=== PATIENT | female | born 1955 | race Hispanic/Latino ===

== ENCOUNTER → 2023-09-27 | Outpatient (CLI) | payer MEDICARE ==
[~2023-09-27] MED LIST: INSU200I4 SQ; MECL-302 PO
== END | disposition home or self-care (01) ==
LOC: RAH 13:01
PROVIDERS: ATTEND Internal Medicine
DX: Z12.31 Encounter for screening mammogram for malignant neoplasm of breast (principal); R92.30 Dense breasts, unspecified
CPT/HCPCS: 77067

== ENCOUNTER → 2023-10-15 | Outpatient (CLI) | payer MEDICARE | END | disposition home or self-care (01) | LOC: RAH 13:46 | PROVIDERS: ATTEND Internal Medicine | DX: R92.8 Other abnormal and inconclusive findings on diagnostic imaging of breast (principal); R92.321 Mammographic fibroglandular density, right breast | CPT/HCPCS: 76641; 77065 ==

== ENCOUNTER → 2023-11-12 | Outpatient (CLI) | payer MEDICARE ==
[2023-11-12 10:24] LABS: INR 1.01 (0.85-1.15); PROTHROMBIN TIME 10.9 SEC (9.6-11.6)
[2023-11-12 10:25] LABS: PARTIAL THROMBOPLASTIN TIME 24.4 SEC (26.3-35.5)
== END | disposition home or self-care (01) ==
LOC: RAH 09:31
PROVIDERS: ATTEND Internal Medicine
DX: R92.8 Other abnormal and inconclusive findings on diagnostic imaging of breast (principal); N63.13 Unspecified lump in the right breast, lower outer quadrant; E55.9 Vitamin D deficiency, unspecified; E11.69 Type 2 diabetes mellitus with other specified complication; E78.5 Hyperlipidemia, unspecified; Z78.0 Asymptomatic menopausal state; E11.65 Type 2 diabetes mellitus with hyperglycemia; L84 Corns and callosities; Z79.01 Long term (current) use of anticoagulants; Z90.710 Acquired absence of both cervix and uterus
CPT/HCPCS: 19083; 85610; 85730; 88361; 36415; 88305; A4215 ×2; A4648

== ENCOUNTER 2024-01-10 06:53 | Day surgery (SDC) | payer MEDICARE ==
--- NOTE | 2024-01-06 09:53 | EKG ---
[facility] Test Date: 2024-01-06 Test Time: 09:51:21 Pat Name: RICARDO PORRAS Department: [facility] Room: Gender: F [employer] Team Lead: [id number] : 1955 Requested By: JASWINDER DIAZ Order Number: [id number] Reading MD: Michael Phan Measurements Intervals [place] Rate: 58 P: -10 LA: 170 QRS: -13 QRSD: 70 T: 10 QT: 464 QTc: 455 Interpretive Statements Sinus bradycardia Low voltage QRS No previous ECG available for comparison Electronically Signed On 01-07-2024 17:19:37 CDT by Michael Phan Please click the below link to view image of tracing.
[2024-01-06 10:03] LABS: BASOPHILS # (AUTO) 0.04 K/uL (0.00-0.20); BASOPHILS % (AUTO) 0.5 % (0.0-5.0); EOSINOPHILS # (AUTO) 0.17 K/uL (0.00-0.70); HEMATOCRIT 40.5 % (36-48); IMMATURE GRANULOCYTE ABSOLUTE 0.03 K/uL (0-1); LYMPHOCYTES # (AUTO) 3.6 K/uL (1.0-4.8); LYMPHOCYTES % (AUTO) 41.1 % (21.0-51.0); MEAN CORPUSCULAR HEMOGLOBIN 32.3 pg (27.0-33.0); MEAN CORPUSCULAR HGB CONC 34.1 g/dL (32.0-36.0); MEAN CORPUSCULAR VOLUME 94.8 fL (79-99); MONOCYTES # (AUTO) 0.6 K/uL (0.1-1.0); MONOCYTES % (AUTO) 6.9 % (3.0-13.0); NEUTROPHILS # (AUTO) 4.3 K/uL (1.8-7.7); NEUTROPHILS % (AUTO) 49.2 % (40.0-77.0); PLATELET COUNT (AUTO) 232 K/uL (130-400); RED BLOOD CELL COUNT(AUTO) 4.27 MIL/uL (4.00-5.50); RED CELL DISTRIBUTION WIDTH 12.4 % (11.0-15.5); WHITE BLOOD COUNT (AUTO) 8.7 K/uL (4.8-10.8)
[2024-01-06 10:16] LABS: APPEARANCE,URINE CLEAR (CLEAR); BILIRUBIN,URINE NEGATIVE (NEGATIVE); COLOR,URINE YELLOW (YELLOW); GLUCOSE, URINE (UA) NEGATIVE (NEGATIVE); KETONES,URINE NEGATIVE (NEGATIVE); LEUKOCYTE ESTERASE ,URINE NEGATIVE Leu/uL (NEGATIVE); NITRATE,URINE NEGATIVE (NEGATIVE); OCCULT BLOOD,URINE NEGATIVE (NEGATIVE); PH,URINE 5.5 (5.0-8.0); PROTEIN,URINE NEGATIVE (NEGATIVE); UROBILINOGEN,URINE 0.2 mg/dL (0.2-1.0)
[2024-01-06 10:17] LABS: ALBUMIN 3.6 g/dL (3.5-5.0); BILIRUBIN,TOTAL 0.4 mg/dL (0.2-1.0); CREATININE 0.9 mg/dL (0.5-1.0); POTASSIUM 4.3 mmol/L (3.5-5.1); PROTHROMBIN TIME 10.8 SEC (9.6-11.6)
[2024-01-06 10:18] LABS: PARTIAL THROMBOPLASTIN TIME 25.4 SEC (26.3-35.5)
[2024-01-06 10:19] LABS: ADD UA MICROSCOPIC NO
[2024-01-06 10:43] VITALS: BP 164/78; PULSE 64; RESP 16; TEMP 96.9
[~2024-01-10] VITALS: Ht 152.4 cm; Wt 72.5 kg
[2024-01-10] VITALS (13 sets, daily range): BP systolic 137–164; BP diastolic 70–87; PULSE 68–88; RESP 13–18; TEMP 96.7–97.4
[~2024-01-10 06:53] MED LIST changes: +0.9%NACL 1000ML 1,000 ML IV SCH; +ATOR10TA69 PO; +CETI-89 PO; -INSU200I4 SQ; -MECL-302 PO; +SEMA0.258 SQ; +VITAMIN B12 PO; +vitamin d PO
[2024-01-10] MEDS ORDERED: dexaMETHasone SOD PHOSPHATE 10MG/ML 1ML VIAL ONE (07:31)
[2024-01-10] MEDS ORDERED: LIDOCAINE PF 100MG/5ML (2%) SYRINGE 5ML ONE (07:31)
[2024-01-10] MEDS ORDERED: GLYCOPYRROLATE 0.2 MG/ML 5 ML VIAL ONE (07:32)
[2024-01-10] MEDS ORDERED: ondanSETRON 4MG INJ ONE (07:32)
[2024-01-10] MEDS ORDERED: NEOSTIGMINE METHYLSULFATE 1MG/ML IV ONE (07:33)
[2024-01-10] MEDS ORDERED: rocuRONium bROMide 10MG/1ML 5ML VL ONE (07:33)
[2024-01-10] MEDS ORDERED: SUCCINYLCHOLINE CHLORIDE 20 MG/ML 10 ML VIAL ONE (07:33)
[2024-01-10] MEDS ORDERED: proPOFol 10 MG/ML 20ML VIAL IV ONE (07:33)
[2024-01-10] MEDS ORDERED: MIDAZOLAM HCL 1 MG/ML 2ML VIAL ONE (07:33)
[2024-01-10] MEDS: ceFAZolin SODIUM 2 GM VIAL ONE (07:34)
[2024-01-10] MEDS: 0.9%NACL 1000ML 1,000 ML IV ONE (07:34)
[2024-01-10] MEDS ORDERED: FENTanyl CITRate PF 50 MCG/1 ML 5ML AMP IV ONE (07:34)
[2024-01-10] MEDS: ceFAZolin SODIUM 2 GM VIAL IVPB PRN (08:48)
[2024-01-10] MEDS: BUPIvacaine/PF 0.25% 30ML VIAL IJ ONE (09:50)
[2024-01-10] MEDS: LIDOCAINE HCL 1% 20 ML VIAL ONE (09:50)
--- NOTE | 2024-01-10 09:57 | HMCIMG ---
SURGICAL SPECIMEN REASON: RT MASS SPECIMEN COMPARISON: None TECHNIQUE: Single view was obtained of the surgical specimen. FINDINGS: The surgical specimen contains an irregular lobulated mass. A MicroMark biopsy clip placed at the time of today's biopsy is present within the mass. Exam appears otherwise unremarkable. IMPRESSION: 1. Target lesion is present within the surgical sample.
[2024-01-10] MEDS: acetaMINOPHEN 1,000 MG/100 ML VIAL IV ONE (10:24)
[2024-01-10] MEDS: ondanSETRON 4MG INJ ONE (10:43)
--- NOTE | 2024-01-10 11:00 | NUR ---
[id number] dressing with dermabond dry/intact. no redness/swelling noted to surrounding area
--- NOTE | 2024-01-10 11:05 | NUR ---
activity/urinary: assisted to standing position without complaining of dizziness. ambulated to bathroom at slow steady gait. pt voided qs yellow color urine without difficulty.
--- NOTE | 2024-01-10 11:15 | NUR ---
dressing: dressing to right breast remains dry/intact. no redness/swelling noted to surrounding area.
--- NOTE | 2024-01-10 13:57 | OP ---
Operative Note: DATE OF PROCEDURE: 01/10/24 SURGEON: JASWINDER DIAZ MD SMALL KICK PRESS OPERATOR: [] PREOPERATIVE DIAGNOSIS: Right breast mass POSTOPERATIVE DIAGNOSIS: Same PROCEDURE: Excisional biopsy of right 8:00 a.m. breast mass with oncoplastic closure INDICATIONS: Patient with biopsy showing normal breast tissue but imaging showing highly suspicious for malignancy. DESCRIPTION OF PROCEDURE: Patient was brought to the operating room and placed in the operating table in a supine position. Once general endotracheal anesthesia is achieved patient's right chest and breast are prepped and draped in sterile fashion. We then proceeded to create a hidden scar periareolar incision from the six to the 12 o'clock position on the lateral aspect of the nipple. Dissected through the skin and subcutaneous tissue to expose breast tissue. We then created a skin flaps superiorly inferiorly and laterally that were thick . We identified our mass at the 8 o'clock position about 10 cm from the nipple . We dissected circumferentially around it and then posteriorly dissected all the way under it. We then excised the specimen completely with the wire as part of our specimen. We marked our specimen with short white suture superficial margin, long white marked the cephalad margin, long black christina the medial margin, the short black christina the lateral margin. We sent off the specimen to mammography to confirm we had good margins and that our clip was within our specimen. Hemostasis was obtained within the cavity. The the partial mastectomy defect was measured at 5*6*2 cm and there was a tunnel that was 11 cm deep from the incision to the end of our mastectomy site. I then proceeded to create skin and subcutaneous skin flaps to release the breast tissue underneath to create tissue advancement flap for closure. I then released the breast tissue of the pectoralis fascia to create tissue advancement flap for the breast tissue. The length of the tunneling required was additional 3 cm in each direction. Once the flaps were created I proceeded to christina the inside of the specimen cavity with metal clips, in case we have to return for reexcision we know where the cavity was located. I then proceeded to approximate the flaps in 3 layers using 2-0 Vicryl in interrupted fashion. The breast tissue was advanced 2 cm in each direction. We then proceeded to do a deep dermal sutures as well with 3-0 Vicryl. And then proceeded to close the skin with a 4-0 Monocryl in running subcuticular fashion. The total area of the advancement flap was 55 cm. Once we had heard back from mammography that we had the clip within our specimen with good margins we then proceeded to apply the Dermabond over top of our incision. All counts were correct x2 at the end of the procedure. Patient tolerated the procedure well. ESTIMATED BLOOD LOSS: Minimal Specimens: Right 8:00 o'clock breast mass Complications: None immediate Devices left in place: None JASWINDER DIAZ MD Jan 10, 2024 13:57
== END 2024-01-10 11:18 | disposition home or self-care (01) ==
LOC: DAH 06:53
PROVIDERS: ATTEND Student in an Organized Health Care Education/Training Program
DX: N63.13 Unspecified lump in the right breast, lower outer quadrant (principal); D48.61 Neoplasm of uncertain behavior of right breast; E11.9 Type 2 diabetes mellitus without complications; E78.00 Pure hypercholesterolemia, unspecified; Z90.710 Acquired absence of both cervix and uterus; Z79.01 Long term (current) use of anticoagulants
CPT/HCPCS: 80053; 85025; 85610; 85730; 81003; 36415; 93005; 19301; 82948 ×2; 88323; 76098; 88342; 88307; 88341; J3010; J1100; J0330; J7030; J0665; J3490 ×3; J2250; J2704; J2405 ×2; J2710; J0690; A4649; A4930; A4215; A4223; A4222; A4221; A4663; A4600

== ENCOUNTER → 2024-05-21 | Outpatient (CLI) | payer MEDICARE ==
[~2024-05-21] MED LIST changes: -0.9%NACL 1000ML 1,000 ML IV SCH
--- NOTE | 2024-05-21 12:46 | HMCIMG ---
US BREAST COMPLETE UNILATERAL REASON: PAIN COMPARISON: 11/12/2023 TECHNIQUE: Right breast ultrasound was performed and compared to prior study. There has been an interval lumpectomy. FINDINGS: There is normal-appearing parenchyma. There are no focal masses. The focal mass in the 8:00 position right breast seen on prior exam is no longer identified. There is a small cyst at 8:00 position 1.3 cm, this may be residual from the lumpectomy. There are no new focal mass lesions. There are some normal-appearing small lymph nodes in the axilla. IMPRESSION: 1. The small fluid collection and clip position right breast, 1.3 cm, this may represent a cyst or may represent a small seroma at the lumpectomy site. 2. Previously described mass is no longer present, there are no new findings.
== END | disposition home or self-care (01) ==
LOC: RAH 10:21
PROVIDERS: ATTEND Internal Medicine
DX: N64.4 Mastodynia (principal); N64.89 Other specified disorders of breast
CPT/HCPCS: 76641